=== PATIENT | female | born 1995 | race Caucasian/White ===

== ENCOUNTER 2023-11-02 00:19 | Day surgery (SDC) | payer BC, SELFPAY ==
[2023-10-21 12:26] VITALS: BMI 21.9
--- NOTE | 2023-10-21 12:30 | PC.NURSE ---
Report to the Outpatient Waiting Room, entrance under the green pavilion located off [facility], at time 0815 on date 11/02/23. Planned Procedure Time: 1015. Time changes happen often and if your time is changed the preop area will call you the afternoon before. - You and your visitor will be asked to self-screen and do not enter if you have any COVID symptoms. - A mask is optional within the hospital at this time. Patients may have clear liquids (water, carbonated beverages, clear teas, apple juice) until 3 hours prior to surgery with a maximum of 20 ounces. - No food from midnight until time of surgery Take the following medications with a SIP of water the morning of surgery: N/A DO NOT STOP ANY OF YOUR OTHER PRESCRIPTION MEDICATIONS PRIOR TO SURGERY ?EXCEPT THE FOLLOWING Medications to discontinue per physician: N/A Date to take last dose: N/A Please no make-up, nail uzbek, hairspray, perfume, deodorant, or body powder the day of surgery. No jewelry (including any body piercings) or valuables the day of surgery, leave them at home. Please take a shower or bath the night before, or the morning of, surgery with an antibacterial soap. Wear comfortable, loose fitting clothing. - Jewelry must be removed prior to entering the operating room. Rings and piercings that are not removed may be cut off. - The hospital will not accept responsibility for valuables. - Please leave all valuables, including medications, at home the day of surgery. If you are going home after surgery, a licensed steam train driver must drive you home. - NO public transportation without another adult if you receive anesthesia. - We recommend that an adult stay with you for 24 hours following discharge. - We also recommend that you do not drive, make important decision, drink alcoholic beverages, or take any drugs that were not prescribed by your health care provider for at least 24 hours after your discharge time. Follow any additional instructions given to you from your surgeon. If you or anyone in your household have experienced Covid symptoms in the past week, please notify your surgeon or the nurse liaison at the phone number below for possible testing. Telephone instructions given to PT - HUONG DE LA GARZA and asked if any additional questions and then verbalized understanding. Patient advised to call surgeon office or pre surgery nurse liaison [phone] if any additional questions.
--- NOTE | 2023-10-31 13:15 | PM.IMHP ---
H&P: HPI History of Present Illness Date/Time: 10/31/23 13:15 Chief Complaint: recurrent tonsillitis snoring adenoid hypertrophy Narrative: planned procedure Review of Systems Review of Systems: All systems reviewed & are unremarkable except as noted in HPI and below PMFSH Family History Family History (Updated 09/30/23 @ 08:24 by Marybel Schmid [employer]) Father Diabetes mellitus Hypertension Depression Mother Hypertension Depression Sibling Depression Grandparent Heart disease Social History Social History (Updated 09/30/23 @ 08:23 by Marybel Schmid [facility]) Smoking status: Never smoker Alcohol intake: never Substance use: never Substance use type: does not use Do You Feel Safe in your Home?: No Lack of Transportation: No Lack of Food: Never True Current Housing: I Have Housing Concerned About Future Housing: No Difficulty Paying Gas/Electric Bills: No Difficulty Paying for Meds: No Currently Unemployed: No Education: High School Diploma/GED Difficulty w/ Childcare or Family Care: No Living arrangements: with family Spiritual care concerns: No Meds Home Medications and Allergies Home Medications Medication Instructions Recorded Confirmed Type medroxyprogesterone 150 mg/mL 150 mg IM [id number] 09/30/23 10/21/23 History intramuscular suspension (Depo-Provera) Allergies Allergy/AdvReac Type Severity Reaction Status Date / Time cephalexin Allergy Severe Hives Verified 10/21/23 12:26 Exam Narrative: chronic appearing tonsils large adenoids Assessment and Plan Assessment and plan (1) Recurrent tonsillitis: Code(s): J03.91 - Acute recurrent tonsillitis, unspecified Status: Acute Assessment and Plan: ?plan or tonsillectomy adenoidectomy risks were discussed including change in swallow change in taste which could be permanent postoperative bleeding 5%.? Time off work time off school.? Inherent risk of narcotic use.? Failure to resolve symptoms if not 2 2 tonsils and/or adenoids.? Need for further procedures.? Damage to any structure above the clavicle by myself.? Damage to any structures during the induction and maintenance of anesthesia.? Patient voiced understanding of these risks and agreed. (2) Adenoid hypertrophy: Code(s): J35.2 - Hypertrophy of adenoids Status: Acute (3) Snoring: Code(s): R06.83 - Snoring Status: Acute
--- NOTE | 2023-11-01 14:45 | P.PNAN_ITS ---
Anes - Initial Pre Proc Eval Procedure: Operation Date: 11/02/23 10:30 Proposed Procedures p Tonsillectomy And Adenoidectomy - Brennan Rogers MD Date/Time: 11/01/23 14:45 Surgeon: Brennan Rogers MD Pre Op Diagnosis: adenoid hypertrophy, recurrent tonsillitis Patient Data Age: 28 Gender: F Height: 1.7 m Weight: 63.5 kg Allergies Allergy/AdvReac Type Severity Reaction Status Date / Time cephalexin Allergy Severe Hives Verified 10/21/23 12:26 Home Medications Medication Instructions Recorded Confirmed Type medroxyprogesterone 150 mg/mL 150 mg IM [id number] 09/30/23 10/21/23 History intramuscular suspension (Depo-Provera) Patient hx anesthesia problems: none Family hx anesthesia problems: none Results Review: All pre-operative results and documents have been reviewed as part of the pre- operative evaluation. [facility] Family History Family History (Updated 09/30/23 @ 08:24 by Marybel Schmid CMA) Father Diabetes mellitus Hypertension Depression Mother Hypertension Depression Sibling Depression Grandparent Heart disease Social History Social History (Updated 09/30/23 @ 08:23 by Marybel Schmid CMA) Smoking status: Never smoker Alcohol intake: never Substance use: never Substance use type: does not use Do You Feel Safe in your Home?: No Lack of Transportation: No Lack of Food: Never True Current Housing: I Have Housing Concerned About Future Housing: No Difficulty Paying Gas/Electric Bills: No Difficulty Paying for Meds: No Currently Unemployed: No Education: High School Diploma/GED Difficulty w/ Childcare or Family Care: No Living arrangements: with family Spiritual care concerns: No Anes - Eval Final PreProcedure Day of Procedure 11/01/23 14:45 Patient weight: normal Heart: regular rate and rhythm Lungs: clear to auscultation Airway: Mallampati scale class II Neurological: alert and oriented Last oral intake: >/= 8 hours ASA classification: I Emergent: no Anesthetic plan: proceed Anesthesia type and monitoring: general ETT and standard monitoring Results Review: All pre-operative results and documents have been reviewed as part of the pre- operative evaluation. Informed Consent: The patient's anesthetic plan and its attendant risks and benefits were discussed with the patient/family/POA. Questions were solicited and answers provided to the satisfaction of the patient/family/POA.
[2023-11-02] VITALS (8 sets, daily range): BP systolic 104–130; BP diastolic 63–84; PULSE 78–98; RESP 14–20; TEMP 36–36.1; O2SAT 98–100
--- NOTE | 2023-11-02 07:18 | WPDHPUPDATE1 ---
History and Physical Update Update Date/Time: 11/02/23 07:18 History and Physical has been reviewed, including an updated exam of the patient. There are NO changes in the patient's condition. Risks, benefits, and alternatives have been discussed and questions answered. Patient agrees to proceed with procedure.
[2023-11-02] MEDS: LACTATED RINGERS 1,000 ML 30 ML IV CONT ×2 (08:25→11:07)
[2023-11-02] MEDS: ACETAMINOPHEN 500 MG TABLET 1000 MG PO (08:46)
--- NOTE | 2023-11-02 11:19 | P.OP_ITS ---
Procedure Note - Detailed Date of Procedure 11/02/23 Pre-op Diagnosis adenoid hypertrophy, recurrent tonsillitis Post-op Diagnosis Same Procedure Performed Tonsillectomy Surgeon Brennan Rogers MD Anesthesia General Indications see above Findings very large endophytic tonsils scarred in lots of blood supply crypts pus in the tonsils tonsil stones no adenoids Description of Procedure patient identified consent verified in preop. Patient brought to the operating room. Time-out performed. General anesthesia induced endotracheal tube secured airway. Patient prepped draped position procedure confirmed 2nd time-out performed. Radiology McIvor mouth gag inserted to reveal tonsils described above. They were removed in the there were they were removed bilaterally in the extracapsular plane using Bovie electrocautery at a setting of 8. Any bleeding was controlled with bipolar electrocautery setting of 8 and or suction Bovie electrocautery setting of 10. Right tonsil slightly larger than left not abnormal appearing in any other way though. In-between tonsils McIvor mouth gag was lowered and reopened to reveal no further bleeding. Adenoid pad viewed non- existent. McIvor mouth gag removed care the patient given Anesthesiology I performed all dictated portions of procedure no complications blood loss 2 cc. Patient taken to PACU. Estimated Blood Loss 2 Drains No Packing No Pathology Yes Complications No immediate complications Condition Stable Disposition PACU [facility] Billing Surgery - Charge Forward: Surgery Billing
[2023-11-02] MEDS: oxyCODONE HCL (*CRX) 5 MG TAB IR PO (12:22)
== END 2023-11-02 12:55 | disposition home or self-care (01) ==
PROVIDERS: PCP Family Medicine; Visit Provider Otolaryngology
PROC: (CPT 42826; principal; 2023-11-02 10:30)
DX: J35.01 Chronic tonsillitis (principal); A42.89 Other forms of actinomycosis; J35.8 Other chronic diseases of tonsils and adenoids
CPT/HCPCS: 42826; 88300; 99283; A9270; J0330; J1100; J2250; J2405; J2704; J3010; J7120

== ENCOUNTER 2023-11-02 14:56 | Emergency (ER) | payer BC, SELFPAY ==
[2023-11-02 15:03] VITALS: BP 139/88; PULSE 102; RESP 14; O2SAT 100
[2023-11-02 15:12] VITALS: BP 139/88; PULSE 88; RESP 19; TEMP 36.2; O2SAT 100
[2023-11-02 15:14] VITALS: PULSE 90
--- NOTE | 2023-11-02 15:25 | ED.GENADULT ---
HPI - General Adult General Chief complaint: Recheck/Abnormal Lab/Rx Stated complaint: post op bleed Time Seen by Provider: 11/02/23 15:21 Source: patient Mode of arrival: ambulatory Limitations: no limitations History of Present Illness HPI narrative: Patient is a 28-year-old female presents to the ED with report of postop complication. Patient underwent planned outpatient tonsillectomy under Dr. Rogers this morning. She developed nausea and vomiting after taking her oral pain pills after the surgery. She then began vomiting. She noticed some blood in the vomit coming from the back of her throat. She then prompted to the ED for possible tonsillar bleed. Patient does still feels somewhat nauseous. Denies any further bleeding upon the time of my evaluation. Denies fevers. Denies significant pain, rating pain at this time 09/29. Denies difficulty breathing. Related Data Home Medications Medication Instructions Recorded Confirmed medroxyprogesterone 150 mg/mL 150 mg IM [id number] 09/30/23 10/21/23 intramuscular suspension (Depo-Provera) Allergies Allergy/AdvReac Type Severity Reaction Status Date / Time cephalexin Allergy Severe Hives Verified 10/21/23 12:26 Review of Systems Review of Systems: CONSTITUTIONAL: Denies fever, chills, or sweats. ENT: See HPI. RESPIRATORY: Denies dyspnea. GASTROINTESTINAL: See HPI. All systems reviewed & are unremarkable except as noted in HPI and below PMFSH Family History Family History Father Diabetes mellitus Hypertension Depression Mother Hypertension Depression Sibling Depression Grandparent Heart disease Social History Social History Smoking status: Never smoker Alcohol intake: never Substance use: never Substance use type: does not use Do You Feel Safe in your Home?: No Lack of Transportation: No Lack of Food: Never True Current Housing: I Have Housing Concerned About Future Housing: No Difficulty Paying Gas/Electric Bills: No Difficulty Paying for Meds: No Currently Unemployed: No Education: High School Diploma/GED Difficulty w/ Childcare or Family Care: No Living arrangements: with family Spiritual care concerns: No Exam Narrative: GENERAL: Well appearing, well-nourished, non-toxic, in no acute distress. HEAD: Normocephalic, atraumatic. ENT: Tonsillar beds cauterized bilaterally, consistent with tonsillectomy. Small area of recent bleeding from right-sided uvula / edge of tonsillar bed. No active bleeding. No stridor or respiratory distress. RESPIRATORY: Airway patent, respirations nonlabored. CARDIOVASCULAR: Regular rate and rhythm NEURO: A&O X3. Speech clear. PSYCHIATRIC: Appropriate mood and affect. Normal interaction. Course Vital Signs Vital signs: Vital Signs Pulse Rate 102 H 11/02/23 15:03 Respiratory Rate 14 11/02/23 15:03 Blood Pressure 139/88 11/02/23 15:03 Pulse Oximetry 100 11/02/23 15:03 Temperature 97.2 F L 11/02/23 15:12 Pulse Rate 68 11/02/23 15:46 Respiratory Rate 16 11/02/23 15:46 Blood Pressure 121/79 11/02/23 15:46 Pulse Oximetry 100 11/02/23 15:46 Medical Decision Making MDM Narrative Medical decision making narrative: Patient presented to ED with concern for tonsillar bleed status post tonsillectomy today. Patient seen and evaluated by Dr. Rogers in the ED, advised small area of bleeding from uvular surface, no evidence of tonsillar bleed. Patient to be discharged. Patient did report nausea related to taking her oral pain medication. Will prescribe Zofran for home. Offered to provide Zofran in the ED, however patient politely declined. Patient advised to follow-up with ENT. Given return precautions. Discharged in stable condition. Medical Records Medical records reviewed: Yes I reviewed the marketing support manager
[2023-11-02 15:46] VITALS: BP 121/79; PULSE 68; RESP 16; O2SAT 100
== END 2023-11-02 15:40 | disposition home or self-care (01) ==
LOC: ANHED 15:32
PROVIDERS: Emergency Provider Physician Assistant; PCP Family Medicine
DX: K91.840 Postprocedural hemorrhage of a digestive system organ or structure following a digestive system procedure (principal); R11.2 Nausea with vomiting, unspecified
CPT/HCPCS: 99283